=== PATIENT | male | born 2000 ===

== ENCOUNTER 2021-09-11 10:49 | Outpatient (CLI) | payer OTHER | END 2021-09-11 10:50 | disposition home or self-care (01) | LOC: NM 10:49 | PROVIDERS: ATTEND Orthopaedic Surgery | DX: M54.50 Low back pain, unspecified (principal) | CPT/HCPCS: 78306; A9503 ==

== ENCOUNTER 2022-06-28 07:59 | Outpatient (CLI) | payer OTHER | END 2022-06-28 08:00 | disposition home or self-care (01) | LOC: NM 07:59 | PROVIDERS: ATTEND Internal Medicine Gastroenterology | DX: K21.9 Gastro-esophageal reflux disease without esophagitis (principal); R10.13 Epigastric pain; R11.0 Nausea; R17 Unspecified jaundice | CPT/HCPCS: 78227; A9537 ==